=== PATIENT | female | born 1980 | race Caucasian/White ===

== ENCOUNTER 2022-07-06 20:15 | Inpatient (IN) ==
[2022-07-06] MEDS ORDERED: METHYLERGONOVINE 0.2 MG/1 ML AMP IM PRN (20:23)
[2022-07-06] MEDS ORDERED: TRANEXAMIC ACID 1,000 MG in SODIUM CHLORIDE 0.9% 100 ML IV PRN (20:23)
[2022-07-06] MEDS ORDERED: miSOPROStoL 200 MCG TABLET RECTAL PRN (20:23)
[2022-07-06] MEDS ORDERED: LACTATED RINGERS 1,000 ML IV ONE (20:23)
[2022-07-06] MEDS ORDERED: OXYTOCIN/LR 20 UNIT/1,000 ML BAG IV ONE (20:23)
[2022-07-06] MEDS ORDERED: CARBOPROST TROMETHAMINE 250 MCG/ML AMP IM PRN (20:23)
[2022-07-06 20:52] LABS: Basophils % 0.2 % (0.0-0.8); Eosinophils # 0.1 10*3/uL (0.0-0.87); Eosinophils % 0.6 % (0.00-10.9); Hematocrit 30.1 VOL% (35.7-47.0); Hemoglobin 9.6 GM/DL (12.0-16.0); Immature Granulocytes % 2.7 %; Immature Granulocytes Absolute 0.31 #; Lymphocytes # 2.2 10*3/uL (1.4-4.0); Lymphocytes % 18.9 % (21.3-54.2); Mean Corpuscular HGB Conc 31.9 GM/DL (32-36); Mean Corpuscular Volume 96.2 FL (87-102); Mean Platelet Volume 10.1 FL (9.6-12.0); Monocytes # 0.8 10*3/uL (0.11-0.8); Neutrophils % 70.6 % (38.7-73.9); Platelet Count 163 T/CUMM (130-400); Red Blood Count 3.13 MC/CUMM (3.8-5.5); Red Cell Distribution Width 13.5 % (9.3-17.3); White Blood Count 11.51 T/CUMM (4-12)
[2022-07-06 21:13] LABS: Alanine Aminotransferase 19 U/L (13-56); Albumin 2.2 G/DL (3.4-5.0); Alkaline Phosphatase 173 U/L (45-117); Aspartate Amino Transferase 21 U/L (0-37); Bilirubin,Total < 0.39 MG/DL (0.20-1.00); Blood Urea Nitrogen 15 MG/DL (7-18); Calcium 8.4 MG/DL (8.5-10.1); Carbon Dioxide 21 MMOL/L (21-32); Chloride 109 MMOL/L (98-107); Glucose 89 MG/DL (74-106); Osmolality,Calculated 276.5 MOS/KG (273-304); Sodium 139 MMOL/L (136-145)
[2022-07-06 22:09] LABS: Bilirubin,Direct < 0.100 MG/DL (0.0-0.20); Uric Acid 6.7 MG/DL (2.6-6.0)
[2022-07-06 22:24] LABS: INR 0.9; Partial Thromboplastin Time 24.3 SECS (23.7-32.9)
[2022-07-07] MEDS: LACTATED RINGERS 1,000 ML IV SCH ×2 (00:15→03:23)
[2022-07-07] MEDS ORDERED: PROMETHAZINE 25 MG/1 ML VIAL IM ONE (00:24)
[2022-07-07] MEDS ORDERED: NALOXONE 0.4 MG/ML VIAL IV PRN (00:24)
[2022-07-07] MEDS ORDERED: diphenhydrAMINE 50 MG/1 ML VIAL IV PRN ×2 (00:24)
[2022-07-07] MEDS ORDERED: ePHEDrine 50 MG/ML VIAL IV PRN (00:24)
[2022-07-07] MEDS ORDERED: hydrOXYzine HCL 25 MG/1 ML VIAL IM PRN (00:24)
[2022-07-07] MEDS ORDERED: CITRIC ACID/SODIUM CITRATE 30 ML UDCUP PO ONE (00:24)
[2022-07-07] MEDS ORDERED: FAMOTIDINE 20 MG/2 ML VIAL IV ONE (00:24)
[2022-07-07] MEDS ORDERED: AMPICILLIN INJ 2,000 MG in SODIUM CHLORIDE 0.9% 100 ML IV ONE (00:30)
[2022-07-07] MEDS ORDERED: OXYTOCIN/LR 20 UNIT/1,000 ML BAG IV ONE ×2 (03:26→17:04)
[2022-07-07 03:44] LABS: Protein/Creatinine Ratio,Urine 0.3 RATIO
[2022-07-07] MEDS: AMPICILLIN INJ 1,000 MG in SODIUM CHLORIDE 0.9% 100 ML IV SCH ×4 (03:57→19:22)
[2022-07-07] MEDS: fentaNYL 2 MCG/ROPIV 0.2% EPID 100 ML EPIDURAL SCH ×2 (07:29→12:51)
[2022-07-07] MEDS ORDERED: OXYTOCIN/LR 20 UNIT/1,000 ML BAG IV SCH (08:00)
[2022-07-07] MEDS ORDERED: ROPIVACAINE 0.5% 30 ML VIAL ONE (10:05)
[2022-07-07] MEDS ORDERED: fentaNYL 250 MCG/5 ML VIAL ONE (10:37)
[2022-07-07] MEDS ORDERED: miSOPROStoL 200 MCG TABLET ONE (11:31)
[2022-07-07] MEDS ORDERED: SODIUM CHLORIDE 0.9% 0 ML IV ONE (11:31)
[2022-07-07] MEDS ORDERED: TRANEXAMIC ACID 1,000 MG/10 ML VIAL ONE (11:31)
[2022-07-07] MEDS ORDERED: OXYTOCIN/LR 0 UNIT/0 ML BAG IV ONE (11:32)
[2022-07-07] MEDS ORDERED: CARBOPROST TROMETHAMINE 250 MCG/ML AMP IM ONE (11:32)
[2022-07-07] MEDS ORDERED: METHYLERGONOVINE 0.2 MG/1 ML AMP ONE (11:32)
[2022-07-07 13:53] LABS: Cord Arterial Blood HCO3 17.1 MMOL/L
[2022-07-07 13:55] LABS: Cord Venous Blood HCO3 18.8 MMOL/L; Cord Venous Blood PCO2 56.6 MMHG; Cord Venous Blood PO2 21.1
[2022-07-07] MEDS ORDERED: WITCH HAZEL PADS 100/JAR TOP PRN (17:04)
[2022-07-07] MEDS ORDERED: LANOLIN 50% CREAM 0.3 OZ TUBE TOP PRN (17:04)
[2022-07-07] MEDS ORDERED: ACETAMINOPHEN 325 MG TABLET PO PRN (17:04)
[2022-07-07] MEDS ORDERED: HYDROCORTISONE 2.5% RECTAL CREAM 30 GM TUBE TOP PRN (17:04)
[2022-07-07] MEDS ORDERED: oxyCODONE/ACETAMINOPHEN 5-325 MG TABLET PO PRN ×2 (17:04)
[2022-07-07] MEDS ORDERED: BISACODYL 10 MG SUPP RECTAL PRN (17:04)
[2022-07-07] MEDS ORDERED: DIPH/TET/ACEL PERT BOOSTER VACCINE 0.5 ML VIAL IM ONE (17:04)
[2022-07-07] MEDS ORDERED: BENZOCAINE 20%/MENTHOL 0.5% SPRAY 56 GM CAN TOP PRN (17:04)
[2022-07-07] MEDS ORDERED: RHO(D) IMMUNE GLOBULIN 300 MCG SYRINGE IM ONE (17:04)
[2022-07-07] MEDS ORDERED: MEASLES/MUMPS/RUBELLA VACCINE 0.5 ML VIAL SUBCUT ONE (17:04)
[2022-07-07] MEDS ORDERED: ONDANSETRON 4 MG/2 ML VIAL IV PRN (17:04)
[2022-07-07] MEDS: IBUPROFEN 800 MG TABLET PO PRN ×2 (17:30→23:27)
[2022-07-07] MEDS: DOCUSATE SODIUM 100 MG CAPSULE PO SCH (20:26)
[2022-07-07] MEDS: FAMOTIDINE 20 MG TABLET PO SCH (20:27)
[2022-07-08 06:18] LABS: Basophils % 0.2 % (0.0-0.8); Eosinophils # 0.1 10*3/uL (0.0-0.87); Eosinophils % 1.1 % (0.00-10.9); Hematocrit 27.9 VOL% (35.7-47.0); Hemoglobin 8.9 GM/DL (12.0-16.0); Immature Granulocytes Absolute 0.23 #; Lymphocytes # 1.9 10*3/uL (1.4-4.0); Lymphocytes % 16.8 % (21.3-54.2); Mean Corpuscular HGB Conc 31.9 GM/DL (32-36); Mean Corpuscular Volume 95.2 FL (87-102); Mean Platelet Volume 10.3 FL (9.6-12.0); Monocytes # 0.8 10*3/uL (0.11-0.8); Monocytes % 7.2 % (1.7-12.7); Neutrophils % 72.7 % (38.7-73.9); Platelet Count 161 T/CUMM (130-400); Red Blood Count 2.93 MC/CUMM (3.8-5.5); Red Cell Distribution Width 13.3 % (9.3-17.3); White Blood Count 11.39 T/CUMM (4-12)
[2022-07-08] MEDS: IBUPROFEN 800 MG TABLET PO PRN ×3 (07:30→17:06)
[2022-07-08] MEDS ORDERED: FUROSEMIDE 40 MG/4 ML VIAL IV ONE (08:50)
[2022-07-08] MEDS: DOCUSATE SODIUM 100 MG CAPSULE PO SCH ×2 (09:23→21:40)
[2022-07-08] MEDS: PANTOPRAZOLE 20 MG TABLET PO SCH (09:23)
[2022-07-08] MEDS: FAMOTIDINE 20 MG TABLET PO SCH ×2 (09:23→22:03)
[2022-07-08] MEDS: FUROSEMIDE 20 MG TABLET PO SCH (11:00)
[2022-07-08] MEDS: POLYETHYLENE GLYCOL POWDER 17 GM PACK PO SCH (17:28)
[2022-07-09] MEDS: IBUPROFEN 800 MG TABLET PO PRN ×2 (01:20→07:35)
[2022-07-09 07:18] VITALS: BP 157/80
[2022-07-09] MEDS: FAMOTIDINE 20 MG TABLET PO SCH (09:52)
[2022-07-09] MEDS: FUROSEMIDE 20 MG TABLET PO SCH (09:52)
[2022-07-09] MEDS: DOCUSATE SODIUM 100 MG CAPSULE PO SCH (09:52)
[2022-07-09] MEDS: PANTOPRAZOLE 20 MG TABLET PO SCH (09:52)
[2022-07-09] MEDS: POLYETHYLENE GLYCOL POWDER 17 GM PACK PO SCH (09:56)
== END 2022-07-09 12:20 | disposition home or self-care (01) | DRG 806 ==
LOC: N.LDOUT 20:15 → N.LD 20:17 → N.OB 07-07 16:25
PROVIDERS: ADMIT Specialist; ATTEND Specialist